=== PATIENT | female | born 1995 | race Two or more races ===

== ENCOUNTER 2022-05-08 16:48 | Emergency (ER) | payer OTHER ==
[~2022-05-08] VITALS: Ht 162.6 cm; Wt 127.0 kg
[2022-05-08] MEDS ORDERED: SODIUM CHLORIDE 0.9% 1000ML 1,000 ML IV ONE (17:45)
[2022-05-08] MEDS ORDERED: SODIUM CHLORIDE 0.9% 1000ML 1,000 ML ONE (17:50)
[2022-05-08 20:10] VITALS: BP 130/76
== END 2022-05-08 20:10 | disposition home or self-care (01) ==
LOC: FSED 17:38
DX: O20.9 Hemorrhage in early pregnancy, unspecified (principal)
CPT/HCPCS: 36415; 76801; 76830; 80048; 81003; 84702; 85025; 99284; J7030